=== PATIENT | female | born 1985 | race African-American/Black ===

== ENCOUNTER 2019-04-25 06:38 | Emergency (ER) | payer MEDICAID ==
[~2019-04-25] VITALS: Ht 175.3 cm; Wt 111.0 kg
[2019-04-25] MEDS ORDERED: SODIUM CHLORIDE 0.9% 1,000 ML IV ONE (07:17)
[2019-04-25] MEDS ORDERED: FAMOTIDINE 20MG/2ML VIAL IV ONE (07:30)
[2019-04-25] MEDS ORDERED: ONDANSETRON HCL 4MG/2ML INJ IV ONE (07:30)
[2019-04-25 07:43] LABS: CLARITY URINE TURBID (CLEAR); COLOR URINE DARK YELLOW (YELLOW); KETONES URINE 2+ (NEGATIVE); LEUKOCYTE ESTERASE URINE 1+ (NEGATIVE); NITRITE URINE NEGATIVE (NEGATIVE); OCCULT BLOOD URINE 3+ (NEGATIVE); PH URINE 5.5 (4.5-8.0); PROTEIN URINE 1+ (NEGATIVE); SPECIFIC GRAVITY URINE 1.027 (1.005-1.030)
[2019-04-25 07:44] LABS: BASOPHILS % 0.3 % (0.0-2.0); EOSINOPHILS % 0.9 % (0.0-5.0); HEMATOCRIT. 39.3 % (36.0-48.0); HEMOGLOBIN. 13.3 g/dL (12.0-16.0); MEAN CORPUSCULAR HEMOGLOBIN 31.7 pg (28.0-32.0); MONOCYTES % 9.2 % (2.0-8.0); NEUTROPHILS % 70.6 % (40.0-76.0); RED BLOOD CELL COUNT 4.18 mill/uL (4.2-5.4)
[2019-04-25 07:56] LABS: CHLORIDE 110 mEq/L (98-107)
[2019-04-25 08:05] LABS: *AMPHETAMINES SCREEN URINE NEGATIVE (NEGATIVE); *BARBITURATES SCREEN URINE NEGATIVE (NEGATIVE); *BENZODIAZEPINES SCREEN URINE NEGATIVE (NEGATIVE); *COCAINE SCREEN URINE NEGATIVE (NEGATIVE); METHADONE URINE SCREEN NEGATIVE (NEGATIVE); OPIATES URINE SCREEN NEGATIVE (NEGATIVE); PHENCYCLIDINE URINE SCREEN NEGATIVE (NEGATIVE)
[2019-04-25 08:12] LABS: CANNABINOID URINE SCREEN PRESUMTIVE POSITIVE (NEGATIVE)
[2019-04-25 08:18] LABS: MEAN PLATELET VOLUME 9.3 fl (7.4-10.4); PLATELET 251 x1000/uL (130-400)
[2019-04-25] MEDS ORDERED: CEFAZOLIN 1000MG PREMIX 50 ML IV ONE (08:45)
[2019-04-25 10:19] LABS: B-HCG QUANTITATIVE 33061 mIU/mL (<3)
[2019-04-25 12:53] VITALS: BP 118/74
[2019-04-28] MEDS ORDERED: METO-293 MT (16:07)
== END 2019-04-25 13:13 | disposition home or self-care (01) ==
LOC: ER 06:38
DX: O21.8 Other vomiting complicating pregnancy (principal); O23.31 Infections of other parts of urinary tract in pregnancy, first trimester; O99.511 Diseases of the respiratory system complicating pregnancy, first trimester; O16.1 Unspecified maternal hypertension, first trimester; Z3A.01 Less than 8 weeks gestation of pregnancy
CPT/HCPCS: 36415; 76801; 76817; 80053; 80305; 81003; 81025; 84702; 85025; 86850; 86900; 86901; 87077; 87086; 87186; 96361; 96365; 96375; 99284; J0690; J2405; J3490; J7030; Z7610

== ENCOUNTER 2019-05-04 09:37 | Emergency (ER) | payer MEDICAID ==
[~2019-05-04] VITALS: Ht 175.3 cm; Wt 103.0 kg
[~2019-05-04 09:37] MED LIST: METO-293 MT
[2019-05-04] MEDS ORDERED: SODIUM CHLORIDE 0.9% 1,000 ML IV ONE (18:09)
[2019-05-04] MEDS ORDERED: ONDANSETRON 4MG ODT PO ONE (18:15)
[2019-05-04 18:24] LABS: CLARITY URINE CLOUDY (CLEAR); COLOR URINE ORANGE (YELLOW); KETONES URINE 1+ (NEGATIVE); LEUKOCYTE ESTERASE URINE 1+ (NEGATIVE); NITRITE URINE POSITIVE (NEGATIVE); OCCULT BLOOD URINE TRACE (NEGATIVE); PROTEIN URINE 2+ (NEGATIVE); SPECIFIC GRAVITY URINE 1.038 (1.005-1.030)
[2019-05-04 19:12] LABS: *AMPHETAMINES SCREEN URINE NEGATIVE (NEGATIVE); *BARBITURATES SCREEN URINE NEGATIVE (NEGATIVE); *BENZODIAZEPINES SCREEN URINE NEGATIVE (NEGATIVE); *COCAINE SCREEN URINE NEGATIVE (NEGATIVE); METHADONE URINE SCREEN NEGATIVE (NEGATIVE); OPIATES URINE SCREEN NEGATIVE (NEGATIVE)
[2019-05-04 19:13] LABS: PHENCYCLIDINE URINE SCREEN NEGATIVE (NEGATIVE)
[2019-05-04 19:14] LABS: CANNABINOID URINE SCREEN PRESUMTIVE POSITIVE (NEGATIVE)
[2019-05-04 19:43] LABS: HEMATOCRIT. 39.9 % (36.0-48.0); HEMOGLOBIN. 13.8 g/dL (12.0-16.0); MEAN CORPUSCULAR HEMOGLOBIN 31.8 pg (28.0-32.0); MEAN CORPUSCULAR VOLUME 91.8 fL (81.0-99.0); MEAN PLATELET VOLUME 9.2 fl (7.4-10.4); PLATELET 246 x1000/uL (130-400); RED BLOOD CELL COUNT 4.35 mill/uL (4.2-5.4); RED CELL DISTRIBUTION WIDTH 12.9 % (11.6-14.6)
[2019-05-04 19:49] LABS: CHLORIDE 102 mEq/L (98-107)
[2019-05-04 20:06] LABS: PLATELET ESTIMATE NORMAL
[2019-05-04 20:12] LABS: B-HCG QUANTITATIVE 126570 mIU/mL (<3)
[2019-05-04] MEDS ORDERED: ACETAMINOPHEN 325MG TABLET PO ONE (20:45)
[2019-05-04] MEDS ORDERED: KCL 10MEQ/50ML PREMIX 50 ML IV ONE (20:45)
[2019-05-04] MEDS ORDERED: CEFAZOLIN 1000MG PREMIX 50 ML IV ONE (20:45)
[2019-05-04] MEDS ORDERED: ONDANSETRON HCL 4MG/2ML INJ IV ONE (21:00)
[2019-05-04 23:30] VITALS: BP 122/63
== END 2019-05-05 00:51 | disposition home or self-care (01) ==
LOC: ER 09:37
DX: O98.811 Other maternal infectious and parasitic diseases complicating pregnancy, first trimester (principal); A41.9 Sepsis, unspecified organism; R65.21 Severe sepsis with septic shock; O26.891 Other specified pregnancy related conditions, first trimester; O21.9 Vomiting of pregnancy, unspecified; O99.511 Diseases of the respiratory system complicating pregnancy, first trimester; J45.909 Unspecified asthma, uncomplicated; O99.011 Anemia complicating pregnancy, first trimester; O08 Complications following ectopic and molar pregnancy; E87.2 Acidosis; M54.9 Dorsalgia, unspecified; O21.0 Mild hyperemesis gravidarum; Z85.118 Personal history of other malignant neoplasm of bronchus and lung; Z3A.01 Less than 8 weeks gestation of pregnancy
CPT/HCPCS: 36415; 76801; 76817; 80053; 80305; 81003; 81025; 84702; 85025; 86850; 86900; 86901; 87077; 87086; 87186; 92950; 96361; 96365; 96375; 99291; J0690; J2405; J3480; J7030; Q0162; Z7610

== ENCOUNTER 2019-05-17 11:48 | Emergency (ER) | payer MEDICAID ==
[~2019-05-17] VITALS: Ht 175.3 cm; Wt 114.0 kg
[2019-05-17] MEDS ORDERED: SODIUM CHLORIDE 0.9% 1,000 ML IV ONE (12:16)
[2019-05-17] MEDS ORDERED: MAGNESIUM/ALUMINUM HYDROXIDE/SIMETHICONE 30ML UDC PO ONE (12:30)
[2019-05-17] MEDS ORDERED: ONDANSETRON HCL 4MG/2ML INJ IV ONE (12:30)
[2019-05-17] MEDS ORDERED: VISCOUS LIDOCAINE 2% 15 ML UDC PO ONE (12:30)
[2019-05-17 12:44] LABS: HEMATOCRIT. 40.6 % (36.0-48.0); HEMOGLOBIN. 13.9 g/dL (12.0-16.0); MEAN CORPUSCULAR HEMOGLOBIN 31.3 pg (28.0-32.0); MEAN CORPUSCULAR VOLUME 91.4 fL (81.0-99.0); MEAN PLATELET VOLUME 9.3 fl (7.4-10.4); PLATELET 300 x1000/uL (130-400); RED BLOOD CELL COUNT 4.44 mill/uL (4.2-5.4); RED CELL DISTRIBUTION WIDTH 12.4 % (11.6-14.6)
[2019-05-17 12:50] LABS: CHLORIDE 100 mEq/L (98-107)
[2019-05-17 13:25] LABS: PLATELET ESTIMATE NORMAL
[2019-05-17 15:29] LABS: CLARITY URINE CLOUDY (CLEAR); COLOR URINE DARK YELLOW (YELLOW); KETONES URINE 4+ (NEGATIVE); LEUKOCYTE ESTERASE URINE 1+ (NEGATIVE); NITRITE URINE POSITIVE (NEGATIVE); OCCULT BLOOD URINE NEGATIVE (NEGATIVE); PH URINE 5.5 (4.5-8.0); PROTEIN URINE 2+ (NEGATIVE); SPECIFIC GRAVITY URINE 1.038 (1.005-1.030)
[2019-05-17] MEDS ORDERED: POTASSIUM CHLORIDE 20MEQ TABLET SR PO ONE (16:45)
[2019-05-17] MEDS ORDERED: CEFTRIAXONE 1 G PREMIX 50 ML IV ONE (16:45)
[2019-05-17 18:37] VITALS: BP 124/86
== END 2019-05-17 18:38 | disposition home or self-care (01) ==
LOC: ER 11:48
DX: O21.0 Mild hyperemesis gravidarum (principal); O23.11 Infections of bladder in pregnancy, first trimester; O26.891 Other specified pregnancy related conditions, first trimester; J45.909 Unspecified asthma, uncomplicated; Z3A.09 9 weeks gestation of pregnancy
CPT/HCPCS: 36415; 76801; 76817; 80048; 81003; 85025; 96361; 96365; 96375; 99284; J0696; J2405; J7030